=== PATIENT | female | born 1995 | race Caucasian/White ===

== ENCOUNTER 2024-06-06 20:51 | Emergency (ER) | payer SELFPAY ==
[~2024-06-06] VITALS: Ht 165.1 cm; Wt 48.0 kg
[2024-06-06 21:02] VITALS: TEMP 98.2; O2SAT 98
[2024-06-06 22:31] VITALS: BP 109/67; PULSE 61; RESP 15; O2SAT 100
== END 2024-06-06 22:31 | disposition left against medical advice (07) ==
LOC: ER 20:51
DX: R55 Syncope and collapse (principal); F10.20 Alcohol dependence, uncomplicated; Z53.29 Procedure and treatment not carried out because of patient's decision for other reasons; Y90.9 Presence of alcohol in blood, level not specified; Z13.9 Encounter for screening, unspecified
CPT/HCPCS: 99283